=== PATIENT | male | born 1985 | race African-American/Black ===

== ENCOUNTER → 2017-02-09 | Outpatient (CLI) | payer OTHER ==
--- NOTE | 2017-02-09 10:29 | REP ---
MRI of the right shoulder: There are no comparison MRI or plain film studies available. The study is performed with T1 and T2 data sets in sagittal, axial and coronal projections. The acromioclavicular joint is unremarkable. There is minimal fluid in the subacromial bursa. The rotator cuff tendons are unremarkable. There is a serpiginous line superiorly in the humeral head that is dark to intermediate on T1 and bright on T2 compatible with avascular necrosis. There are similar serpiginous lesions in the metaphysis and proximal shaft of the humerus compatible with bone infarct. There is no evidence of humeral head cortical surface collapse . There is normal marrow signal bright on T1 and dark on T2 fat-suppressed images surrounded by the serpiginous line. No glenohumeral joint effusion is identified. On the axial images there is a small focal zone of intermediate/T2 signal in the posterior glenoid labrum inferiorly compatible with a posterior inferior labral tear. There is no abnormal signal in the glenoid. 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 Probable posterior inferior labral tear. No abnormal signal in the glenoid. Signed by Michele Shaver MD 02/09/2017 10:21 A
== END ==
LOC: M RAD 07:30
PROVIDERS: ATTEND Physician Assistant Medical
DX: M87.021 Idiopathic aseptic necrosis of right humerus (principal)